=== PATIENT | female | born 1995 | race African-American/Black ===

== ENCOUNTER 2018-07-27 08:18 | Emergency (ER) | payer OTHER, SELFPAY ==
[2018-07-27 09:15] LABS: Urine Blood 2+ (NEG); Urine Glucose NEGATIVE (NEG); Urine Protein 1+ (NEG); Urine Specific Gravity >1.030 (1.005-1.030)
[2018-07-27 09:15] LABS: Urine Bacteria <20 /HPF (<20); Urine RBC <5 /HPF (NONE SEEN)
[2018-07-27 09:16] LABS: Urine Culture Reflex Order NOT NEEDED; Urine Mucus 2+ /HPF (NONE SEEN)
[2018-07-27 09:26] LABS: Absolute Lymphocytes (CBC) 1.9 K/uL (0.7-4.9); Absolute Monocytes 0.3 K/uL (0.1-1.3); Absolute Neutrophil 1.8 K/uL (1.8-8.0); Basophils % 0.7 % (0-1.3); Eosinophils % 2.3 % (0-4.4); Hematocrit 35.7 % (36.0-45.0); Lymphocytes % 46.2 % (15.3-44.8); MCH 23.5 pg (27.0-35.0); MCV 72.1 fL (80-100); MPV 8.9 fL (7.6-11.3); Monocytes % 8.1 % (3.3-12.3); RBC Red Blood Cell Count 4.95 M/uL (3.86-4.86)
[2018-07-27] MEDS ORDERED: FAMOTIDINE 20 MG/2 ML VIAL IV ONE (09:37)
[2018-07-27] MEDS ORDERED: NA CHLORIDE 0.9% 1,000 ML ONE (09:37)
[2018-07-27] MEDS ORDERED: ONDANSETRON 4 MG/2 ML VIAL ONE (09:37)
[2018-07-27] MEDS ORDERED: MORPHINE 4 MG/ML SYR ONE (09:37)
[2018-07-27 10:08] LABS: ALT/SGPT 17 U/L (12-78); AST/SGOT 12 U/L (15-37); Albumin 3.8 g/dL (3.4-5.0); Alkaline Phosphatase 54 U/L (45-117); BUN Blood Urea Nitrogen 10 mg/dL (7-18); Bicarbonate 27 mmol/L (21-32); Bilirubin Direct 0.1 mg/dL (0-0.2); Bilirubin Total 0.4 mg/dL (0.2-1.0); Glucose Level 73 mg/dL (74-106); Lipase 119 U/L (73-393); Potassium 3.8 mmol/L (3.5-5.1); Protein, Total 7.9 g/dL (6.4-8.2); Sodium Level 140 mmol/L (136-145)
--- NOTE | 2018-07-27 10:15 | RAD REPORT ---
EXAM DESCRIPTION: RAD - Chest Single View - 07/27/2018 9:52 am CLINICAL HISTORY: COUGH Chest pain. COMPARISON: CHEST PA AND LAT 2 VIEW dated 10/30/2009 FINDINGS: Portable technique limits examination quality. The lungs are grossly clear. The heart is normal in size. No displaced fractures.There is a prominent scoliotic curvature of the thoracolumbar spine with concavity to the left. IMPRESSION: No acute intrathoracic process suspected.
--- NOTE | 2018-07-27 10:35 | RAD REPORT ---
EXAM DESCRIPTION: US - Abdomen Exam Limited - 07/27/2018 9:17 am CLINICAL HISTORY: ABD PAIN COMPARISON: No comparisons FINDINGS: The gallbladder demonstrates no gallstones. No pericholecystic fluid or gallbladder wall t hickening. The common bile duct is normal measuring 2 mm. The liver demonstrates no findings of intrahepatic biliary dilatation. IMPRESSION: Unremarkable examination.
--- NOTE | 2018-07-27 11:45 | RAD REPORT ---
EXAM DESCRIPTION: CTAbdomen Pelvis W Contrast - 07/27/2018 11:31 am CLINICAL HISTORY: Abdominal pain. ABD PAIN COMPARISON: No comparisons TECHNIQUE: Biphasic CT imaging of the abdomen and pelvis was performed with 100 ml non-ionic IV cont rast. All CT scans are performed using dose optimization technique as appropriate and may include automated exposure control or mA/KV adjustment according to patient size. FINDINGS: The lung bases are clear. The liver contains several small enhancing lesions, most notable anterior left lobe measuring 12 mm. The lesions demonstrate relatively benign features, however, are nonspecific. In this age group heman gioma, multiple hepatic adenomas and FNH would be primary consideration. MR imaging of liver may be p erformed on a nonemergent basis for followup. The spleen contains a small 10 mm cyst. The pancreas, adrenal glands and kidneys show no acute proces s. No bowel obstruction, free air, free fluid or abscess. Large amount of retained stool in the colon. T he appendix is normal. No evidence of significant lymphadenopathy. No suspicious bony findings. IMPRESSION: No acute intra-abdominal or pelvic finding. Moderate fecal retention. Small enhancing liver lesions are noted which are nonspecific. MR liver protocol followup would be ad vised on a nonemergent basis.
--- NOTE | 2018-07-27 12:11 | EDPHYS ---
Physician Documentation [facility] Name: Yolanda Parekh Age: 22 yrs Sex: Female : 1995 Arrival Date: 07/27/2018 Time: 08:22 Bed 16 Private MD: ED Physician Colby Dao HPI: 07/27 09:05 This 22 yrs old Black Female presents to ER via Ambulatory with complaints of Fever, amanda Abdominal Pain. 09:05 The patient reports fever, not measured (subjective). Onset: The symptoms/episode amanda began/occurred 3 day(s) ago. Modifying factors: there are no obvious modifying factors. Associated signs and symptoms: Pertinent positives: chills, cough. Severity of symptoms: At their worst the symptoms were mild in the emergency department the symptoms are unchanged. The patient has not experienced similar symptoms in the past. 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 - Social history:: Smoking status: Patient/guardian denies using tobacco. - Ebola Screening: : Patient denies exposure to infectious person Patient denies travel to an Ebola-affected area in the 21 days before illness onset. - Family history:: not pertinent. ROS: 09:05 Constitutional: Negative for fever, chills, and weight loss, Eyes: Negative for injury, amanda pain, redness, and discharge, ENT: Negative for injury, pain, and discharge, Neck: Negative for injury, pain, and swelling, Cardiovascular: Negative for chest pain, palpitations, and edema, Back: Negative for injury and pain, : Negative for injury, bleeding, discharge, and swelling, MS/Extremity: Negative for injury and deformity, Skin: Negative for injury, rash, and discoloration, Neuro: Negative for headache, weakness, numbness, tingling, and seizure, Psych: Negative for depression, anxiety, suicide ideation, homicidal ideation, and hallucinations, Allergy/Immunology: Negative for hives, rash, and allergies, Endocrine: Negative for neck swelling, polydipsia, polyuria, polyphagia, and marked weight changes, Hematologic/Lymphatic: Negative for swollen nodes, abnormal bleeding, and unusual bruising. 09:05 Respiratory: Positive for cough. 09:05 Abdomen/GI: Positive for abdominal pain, of the epigastric area, right upper quadrant and left upper quadrant. Exam: 09:05 Constitutional: This is a well developed, well nourished patient who is awake, alert, amanda and in no acute distress. Head/Face: Normocephalic, atraumatic. Eyes: Pupils equal round and reactive to light, extra-ocular motions intact. Lids and lashes normal. Conjunctiva and sclera are non-icteric and not injected. Cornea within normal limits. Periorbital areas with no swelling, redness, or edema. ENT: Nares patent. No nasal discharge, no septal abnormalities noted. Tympanic membranes are normal and external auditory canals are clear. Oropharynx with no redness, swelling, or masses, exudates, or evidence of obstruction, uvula midline. Mucous membranes moist. Neck: Trachea midline, no thyromegaly or masses palpated, and no cervical lymphadenopathy. Supple, full range of motion without nuchal rigidity, or vertebral point tenderness. No Meningismus. Chest/axilla: Normal chest wall appearance and motion. Nontender with no deformity. No lesions are appreciated. Cardiovascular: Regular rate and rhythm with a normal S1 and S2. No gallops, murmurs, or rubs. Normal PMI, no JVD. No pulse deficits. Respiratory: Lungs have equal breath sounds bilaterally, clear to auscultation and percussion. No rales, rhonchi or wheezes noted. No increased work of breathing, no retractions or nasal flaring. Back: No spinal tenderness. No costovertebral tenderness. Full range of motion. Female : Normal external genitalia. Skin: Warm, dry with normal turgor. Normal color with no rashes, no lesions, and no evidence of cellulitis. MS/ Extremity: Pulses equal, no cyanosis. Neurovascular intact. Full, normal range of motion. Neuro: Awake and alert, GCS 15, oriented to person, place, time, and situation. Cranial nerves II-XII grossly intact. Motor strength 5/5 in all extremities. Sensory grossly intact. Cerebellar exam normal. Normal gait. Psych: Awake, alert, with orientation to person, place and time. Behavior, mood, and affect are within normal limits. 09:05 Abdomen/GI: Inspection: abdomen appears normal, Bowel sounds: normal, Palpation: mild abdominal tenderness, in the epigastric area, right upper quadrant and left upper quadrant, moderate abdominal tenderness, Liver: no appreciated palpable abnormalities, Hernia: not appreciated. Vital Signs: 08:30 BP 118 / 78; Pulse 89; Resp 14; Temp 98.4(O); Pulse Ox 100% on R/A; Weight 51.26 kg; ss Height 5 ft. 2 in. (157.48 cm); Pain 7/10; 09:30 BP 124 / 82; Pulse 59; Resp 15; Temp 97.9(O); Pulse Ox 100% on R/A; rb1 10:10 BP 116 / 78; Pulse 58; Resp 12; Temp 98.8; Pulse Ox 99% on R/A; Pain 5/10; ch 11:38 BP 114 / 62; Pulse 60; Resp 14; Pulse Ox 99% on R/A; ch 12:34 BP 105 / 64; Pulse 54; Resp 14; Temp 98.6; Pulse Ox 99% on R/A; Pain 1/10; ch 08:30 Body Mass Index 20.67 (51.26 kg, 157.48 cm) ss MDM: 08:25 Patient medically screened. [facility] 09:07 Data reviewed: vital signs, nurses notes, lab test result(s), radiologic studies, CT amanda scan, plain films, ultrasound. 07/27 08:40 Order name: Urine Microscopic Only; Complete Time: 10:45 [facility] 07/27 09:03 Order name: Basic Metabolic Panel; Complete Time: 10:[address] [facility] 07/27 09:03 Order name: CBC with Diff; Complete Time: 10:[address] [facility] 07/27 09:03 Order name: Creatinine for Radiology; Complete Time: 10:[address] [facility] 07/27 09:03 Order name: Hepatic Function; Complete Time: 10:[address] [facility] 07/27 09:03 Order name: Lipase; Complete Time: 10:[address] [facility] 07/27 09:03 Order name: US Abdomen Limited; Complete Time: 10:[address] [facility] 07/27 09:03 Order name: CT Abd/Pelvis - W/Contrast; Complete Time: 12:[address] [facility] 07/27 09:07 Order name: Urine Dipstick--Ancillary (enter results); Complete Time: 10:45 bd 07/27 09:07 Order name: Urine --Ancillary (enter results); Complete Time: 10:45 07/27 09:07 Order name: Chest Single View XRAY; Complete Time: 10:[address] [facility] 07/27 09:03 Order name: IV Saline Lock; Complete Time: 09:[address] [facility] 07/27 09:03 Order name: Labs collected and sent; Complete Time: 09:[address] [facility] 07/27 09:03 Order name: Urine Dipstick-Ancillary (obtain specimen); Complete Time: 09:[address] [facility] 07/27 09:03 Order name: Urine Test (obtain specimen); Complete Time: 09:[address] [facility] Administered Medications: 09:34 Drug: NS 0.9% 1000 ml Route: IV; Rate: 1 bolus; Site: left antecubital; rb1 11:39 Follow up: IV Status: Completed infusion; IV Intake: 1000ml 09:34 Drug: morphine 2 mg Route: IVP; Site: left antecubital; rb1 11:39 Follow up: Response: No adverse reaction; Marked relief of symptoms 09:34 Drug: Zofran 4 mg Route: IVP; Site: left antecubital; rb1 11:39 Follow up: Response: No adverse reaction; Marked relief of symptoms 09:34 Drug: Pepcid 20 mg Route: IVP; Site: left antecubital; rb1 11:39 Follow up: Response: No adverse reaction Disposition: 07/27/18 12:10 Discharged to Home. Impression: Abdominal tenderness, Fever, unspecified, Constipation. - Condition is Stable. - Discharge Instructions: Abdominal Pain, Adult, Constipation, Adult, Fever, Adult, Abdominal Pain, Adult, [id number]. - Prescriptions for Pepcid 20 mg Oral Tablet - take 1 tablet by ORAL route every 12 hours for 10 days; 20 tablet. Zofran 4 mg Oral Tablet - take 1 tablet by ORAL route every 12 hours As needed; 20 tablet. Miralax 17 gram/dose Oral - take 1 packet by ORAL route once daily dilute powder in 8 ounces of water or juice; 14 packet. - Work release form, Medication Reconciliation Form, Thank You Letter, Antibiotic Education, Prescription Opioid Use form. - Follow up: Private Physician; When: 2 - 3 days; Reason: Recheck today's complaints, Continuance of care, Re-evaluation by your physician. - Problem is new. - Symptoms have improved. Signatures: Dispatcher [employer] EDLoretta Izaguirre, RN RN Colby Marcelino MD MD cha Smirch, Shelby, RN RN Nimo Cm, KIERSTEN RN rb1 Corrections: (The following items were deleted from the chart) 12:36 12:10 07/27/2018 12:10 Discharged to Home. Impression: Abdominal tenderness; Fever, ch unspecified; Constipation. Condition is Stable. Discharge Instructions: Abdominal Pain, Adult, Fever, Adult, Abdominal Pain, Adult, [id number]. Prescriptions for Pepcid 20 mg Oral Tablet - take 1 tablet by ORAL route every 12 hours for 10 days; 20 tablet, Zofran 4 mg Oral Tablet - take 1 tablet by ORAL route every 12 hours As needed; 20 tablet. and Forms are Medication Reconciliation Form, Thank You Letter, Antibiotic Education, Prescription Opioid Use. Follow up: Private Physician; When: 2 - 3 days; Reason: Recheck today's complaints, Continuance of care, Re-evaluation by your physician. Problem is new. Symptoms have improved. amanda
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
== END 2018-07-27 12:36 | disposition home or self-care (01) ==
LOC: ER 08:18
DX: K59.00 Constipation, unspecified (principal); R50.9 Fever, unspecified
CPT/HCPCS: 36415; 71045; 74177; 76705; 80048; 80076; 81003; 81015; 81025; 83690; 85025; 96361; 96374; 96375; 99284; J2405; J7030; Q9967

== ENCOUNTER 2019-07-21 16:10 | Emergency (ER) | payer OTHER ==
[2019-07-21] MEDS ORDERED: KETOROLAC 30 MG/ML INJ ONE (17:49)
[2019-07-21] MEDS ORDERED: CYCLOBENZAPRINE 10 MG TAB ONE (17:49)
[2019-07-21 18:27] LABS: Urine Bacteria 20-50 /HPF (<20); Urine Culture Reflex Order REFLEXED; Urine Mucus 1+ /HPF (NONE SEEN)
[2019-07-21 18:27] LABS: Urine Blood TRACE (NEG); Urine Glucose TRACE (NEG); Urine Protein NEGATIVE (NEG); Urine Specific Gravity >1.030 (1.005-1.030)
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
[2019-07-21 21:59] VITALS: TEMP 98.7
[2019-07-21 22:01] VITALS: BP 129/87; O2SAT 100
== END 2019-07-21 20:13 | disposition home or self-care (01) ==
LOC: ER 16:10
DX: M54.2 Cervicalgia (principal); M54.5 Low back pain; V43.53XA Car driver injured in collision with pick-up truck in traffic accident, initial encounter; Y93.89 Activity, other specified; Y92.410 Unspecified street and highway as the place of occurrence of the external cause
CPT/HCPCS: 70450; 71250; 72125; 81003; 81015; 81025; 87077; 87086; 87088; 87186; 96372; 99284